=== PATIENT | female | born 1980 ===

== ENCOUNTER 2023-09-07 18:01 | Emergency (ER) | payer SELFPAY ==
[2023-09-07 18:04] VITALS: BP 164/105; PULSE 79; RESP 20; TEMP 36.9; O2SAT 100
--- NOTE | 2023-09-07 18:29 | ED_ITS ---
HPI - Abdominal Pain General Chief Complaint: Abdominal Pain Stated Complaint: right flank pain Time Seen by Provider: 09/07/23 18:29 Focused HPI: Magdalena is a 42-year-old female patient presenting to the ER today with complaints of right-sided flank pain is radiating into her right abdomen. States the pain is sharp and comes in waves. History of kidney stones in the past. Does note blood in her urine. Symptoms started yesterday. No fever or chills. Reports some associated nausea without vomiting. General: Well-developed, obese, in no apparent distress. Head: Normocephalic, atraumatic. Cardio: Regular rate and rhythm, s1 and s2 normal, no murmur appreciated. Resp: Clear to auscultation bilaterally, no rhonchi, rales, wheezing or rubs. Abdomen: Soft, pliable, bowel sounds present in all quadrants, right upper quadrant tender to palpation, no organomegly, positive right CVAT tenderness. Patient screened in triage and initial orders placed. Additional care and disposition to be based upon diagnostic testing and treatment. Source: patient Mode of arrival: ambulatory Limitations: no limitations PMFSH Comments At the time of my signature, I reviewed and agree with the nursing past medical, surgical, social, and family history. There is no relevant family history pertinent to the patient complaint. Course Course Emergency Course: Portions of this record may have been created with voice recognition software. Vital Signs Vital signs: Vital Signs Temperature 36.9 C 09/07/23 18:04 Pulse Rate 79 09/07/23 18:04 Respiratory Rate 20 09/07/23 18:04 Blood Pressure 164/105 H 09/07/23 18:04 Pulse Oximetry 100 09/07/23 18:04 Oxygen Delivery Room Air 09/07/23 18:04 Temperature 36.9 C 09/07/23 18:04 Pulse Rate 79 09/07/23 18:04 Respiratory Rate 20 09/07/23 18:04 Blood Pressure 164/105 H 09/07/23 18:04 Pulse Oximetry 100 09/07/23 18:04 Oxygen Delivery Room Air 09/07/23 18:04 Vital signs reviewed Discharge Plan Discharge Clinical Impression: Acute right flank pain Patient Disposition: Elopement After Seen by Prov Condition: Stable Instructions: Antibiotic Form Follow-up/Referrals: PHYSICIAN,CONSERVATION PLANNER [Non-Staff] - Time of Disposition: 18:45 Quality [facility] Nursing Documentation ED NIHSS nursing documentation: reviewed/agree
--- NOTE | 2023-09-07 18:56 | PC.NURSE ---
patient stated that she was going to run to her car to get a linseed oil order filler for phone and did not return. provider aware.
== END 2023-09-07 18:56 | disposition left against medical advice (07) ==
LOC: ANHED 20:48
PROVIDERS: Emergency Provider Nurse Practitioner Family
DX: R10.9 Unspecified abdominal pain (principal); Z87.442 Personal history of urinary calculi
CPT/HCPCS: 99281